=== PATIENT | male | born 1950 | race African-American/Black ===

== ENCOUNTER 2023-07-18 01:14 | Inpatient (IN) | payer OTHER ==
[~2023-07-18] VITALS: Ht 172.7 cm; Wt 54.7 kg
[2023-07-18] VITALS (11 sets, daily range): BP systolic 122–159; BP diastolic 87–92; PULSE 63–102; RESP 15–63; TEMP 97.2–98.4; O2SAT 95–100
[2023-07-18] MEDS ORDERED: DOCUSATE SOD 100 MG CAP PO PRN (05:45)
[2023-07-18] MEDS ORDERED: DEXTROSE (50%) 50ML SYRG IV PRN (05:45)
[2023-07-18] MEDS ORDERED: MORPHINE SULFATE INJ 2 MG/ml SYRG IV PRN ×2 (05:45)
[2023-07-18] MEDS ORDERED: ACETAMINOPHEN 325 MG TAB PO PRN (05:45)
[2023-07-18] MEDS ORDERED: ONDANSETRON HCL 4 MG/2 ML VIAL IV PRN (05:45)
[2023-07-18] MEDS ORDERED: NITROGLYCERIN 0.4 MG SL TAB SL PRN (05:45)
[2023-07-18] MEDS ORDERED: HYDROcodone-ACET 5/325MG TAB PO PRN (05:45)
[2023-07-18] MEDS ORDERED: hydrALAZINE HCL 20 MG/ML VL IV PRN (05:45)
[2023-07-18] MEDS: IPRATROPIUM BROM 0.5 MG/2.5ML INH SOL NEB SCH ×3 (06:00→18:53)
[2023-07-18] MEDS: ALBUTEROL SULF 2.5 MG/0.5ML(0.5%) NEB SOLN NEB SCH ×3 (06:00→18:53)
[2023-07-18] MEDS: FUROSEMIDE 20 MG/2 ML VIAL IV SCH ×2 (06:00→18:56)
[2023-07-18] MEDS: InsuLIN REG 1unit/0.01ml Soln (100units/ml) SC SCH ×4 (06:56→22:00)
[2023-07-18] MEDS: ACCU-CHEK COMFORT CURVE STRIP VI SCH ×4 (06:57→22:00)
[2023-07-18] MEDS: PANTOPRAZOLE 40 MG/10 ML VIAL INJ IV SCH (10:02)
[2023-07-18] MEDS ORDERED: ADENOSINE 44 MG in GIVE UN-DILUTED 0 ML IV STA (10:11)
[2023-07-18] MEDS: ASPirin 81 mg TAB PO SCH (12:27)
[2023-07-18] MEDS: CARVEDILOL 3.125 MG TAB PO SCH ×2 (12:27→22:00)
[2023-07-18] MEDS: ENOXAPARIN SOD 40 MG/0.4 ML SYRINGE SC SCH (12:28)
[2023-07-18] MEDS ORDERED: metOLazone 5 MG TAB PO ONE (13:15)
[2023-07-18 13:19] LABS: Basophils # (auto) 0 10 ^3/uL (0-0.2); Basophils % (auto) 0.6 % (0.0-2.0); Eosinophils # (auto) 0 10 ^3/uL (0-0.8); Eosinophils % (auto) 0.4 % (0.0-7.0); Hematocrit 44.9 % (41.0-53.0); Hemoglobin 14.7 g/dL (13.5-17.5); Lymphocytes # (auto) 0.6 10 ^3/uL (0.4-5.4); Lymphocytes % (auto) 10.2 % (10.0-50.0); Mean Corpuscular Hemoglobin 28.3 pg (28.0-32.0); Mean Corpuscular Hgb Conc. 32.9 g/dL (32.0-36.0); Mean Corpuscular Volume 86.2 fL (80.0-100.0); Monocytes # (auto) 0.6 10 ^3/uL (0-1.3); Neutrophils # (auto) 4.9 10 ^3/uL (1.6-8.6); Neutrophils % (auto) 78.8 % (37.0-80.0); Red Cell Distribution Width 15.2 % (11.8-14.3); White Blood Cell 6.2 10^3/uL (4.4-10.8)
[2023-07-18 13:21] LABS: Chloride 103 mmol/L (98-107); Potassium 3.7 mmol/L (3.5-5.1); Sodium 138 mmol/L (136-145)
[2023-07-18 13:22] LABS: Anion Gap 7.1 (5-15); Calcium 9.9 mg/dL (8.5-10.1); Carbon Dioxide 27.9 mmol/L (20-30)
[2023-07-18 13:27] LABS: BUN/Creatinine Ratio 16.4 (10.0-20.0); Blood Urea Nitrogen 23 mg/dL (9-23); Glucose 82 mg/dL (74-106)
[2023-07-18 15:36] LABS: INR 1.04 (0.9-1.15); Prothrombin Time 10.9 sec (9.3-11.8)
[2023-07-18] MEDS ORDERED: ATORVASTATIN 20 MG TAB PO SCH (22:00)
[2023-07-19] VITALS (20 sets, daily range): BP systolic 118–149; BP diastolic 78–108; PULSE 63–92; RESP 12–20; TEMP 97.6–98.2; O2SAT 93–100
[2023-07-19] MEDS: ALBUTEROL SULF 2.5 MG/0.5ML(0.5%) NEB SOLN NEB SCH ×3 (00:36→11:59)
[2023-07-19] MEDS: IPRATROPIUM BROM 0.5 MG/2.5ML INH SOL NEB SCH ×3 (00:36→11:59)
[2023-07-19] MEDS: FUROSEMIDE 20 MG/2 ML VIAL IV SCH ×2 (05:24→18:00)
[2023-07-19] MEDS: ACCU-CHEK COMFORT CURVE STRIP VI SCH ×3 (06:04→18:00)
[2023-07-19] MEDS: InsuLIN REG 1unit/0.01ml Soln (100units/ml) SC SCH ×3 (06:04→18:00)
[2023-07-19 07:24] LABS: Hemoglobin 13.9 g/dL (13.5-17.5); Mean Corpuscular Hemoglobin 28.5 pg (28.0-32.0); Mean Corpuscular Volume 86.4 fL (80.0-100.0); Red Blood Cells 4.86 10^6/uL (4.5-5.90); Red Cell Distribution Width 15.3 % (11.8-14.3); White Blood Cell 3.5 10^3/uL (4.4-10.8)
[2023-07-19 07:32] LABS: Calcium 9.5 mg/dL (8.5-10.1); Chloride 101 mmol/L (98-107); Potassium 3.6 mmol/L (3.5-5.1); Sodium 135 mmol/L (136-145)
[2023-07-19 07:33] LABS: Anion Gap 6.7 (5-15); Carbon Dioxide 27.3 mmol/L (20-30)
[2023-07-19 07:36] LABS: Band Neutrophils % (manual) 0; Basophils % (manual) 0 (0.0-2.0); Blast Cells 0; Metamyelocytes % 0; Myelocytes % 0; Promyelocytes % 0; Reactive Lymphocytes 0
[2023-07-19 07:39] LABS: BUN/Creatinine Ratio 16.3 (10.0-20.0); Blood Urea Nitrogen 25 mg/dL (9-23); Glucose 96 mg/dL (74-106)
[2023-07-19] MEDS: CARVEDILOL 3.125 MG TAB PO SCH (10:34)
[2023-07-19] MEDS: PANTOPRAZOLE 40 MG/10 ML VIAL INJ IV SCH (10:34)
[2023-07-19] MEDS: ENOXAPARIN SOD 40 MG/0.4 ML SYRINGE SC SCH (10:34)
[2023-07-19] MEDS: ASPirin 81 mg TAB PO SCH (10:34)
[2023-07-19 12:38] LABS: Eosinophils % (manual) 2 (0-7); Lymphocytes % (manual) 29 (10.0-50.0); Monocytes % (manual) 16 (0-12)
[2023-07-19 12:39] LABS: Platelet Estimate Adequate
[2023-07-19] MEDS ORDERED: IODIXANOL 320MG/ML 100ML BTL IV ONE (14:09)
[2023-07-19] MEDS ORDERED: LIDOCAINE 2%HCL (LOCAL ANESTH.) INJ 20ML MDV ONE (14:09)
[2023-07-19] MEDS ORDERED: ANGIOMAX 250 MG VIAL IV ONE (14:20)
[2023-07-19] MEDS ORDERED: HEPARIN SODIUM (PORCINE) 5000 UNITS/ML 1ML VIAL ONE (14:20)
[2023-07-19] MEDS ORDERED: fentaNYL CITRATE 100 MCG/2 ML VL ONE (14:20)
[2023-07-19] MEDS ORDERED: VERAPAMIL 2.5MG/ML INJ 2ML VIAL IV ONE (14:20)
[2023-07-19] MEDS ORDERED: MIDAZOLAM HCL 2MG/2ML 2ml VIAL (1mg/ml) ONE (14:21)
[2023-07-19] MEDS ORDERED: SODIUM CHL 0.9% 0 ML ONE (14:21)
[2023-07-19] MEDS ORDERED: CAR3125T PO (16:04)
[2023-07-19] MEDS ORDERED: POTA1TAB61 PO (16:04)
[2023-07-19] MEDS ORDERED: FURO1TAB31 PO (16:04)
[2023-07-19] MEDS ORDERED: ATOR20TA50 PO (16:04)
[2023-07-19] MEDS ORDERED: ASPI-325 PO (16:04)
== END 2023-07-19 19:07 | disposition home health service (06) | DRG 287 ==
LOC: TELE-WESTW 05:10 → UNDOADMIN 05:10 → TELE-WESTW 05:51
PROVIDERS: ADMIT Nurse Practitioner Family; ATTEND Internal Medicine
PROC: 4A023N7 Measurement of Cardiac Sampling and Pressure, Left Heart, Percutaneous Approach (ICD-10-PCS; principal; 2023-07-19)
PROC: B211YZZ Fluoroscopy of Multiple Coronary Arteries using Other Contrast (ICD-10-PCS; 2023-07-19)
DX: I16.0 Hypertensive urgency (principal); I42.8 Other cardiomyopathies; R64 Cachexia; Z68.1 Body mass index [BMI] 19.9 or less, adult; I11.0 Hypertensive heart disease with heart failure; J44.9 Chronic obstructive pulmonary disease, unspecified; E11.9 Type 2 diabetes mellitus without complications; I25.10 Atherosclerotic heart disease of native coronary artery without angina pectoris; R54 Age-related physical debility; I50.9 Heart failure, unspecified; E78.5 Hyperlipidemia, unspecified; F17.210 Nicotine dependence, cigarettes, uncomplicated; Z82.49 Family history of ischemic heart disease and other diseases of the circulatory system; Z91.199 Patient's noncompliance with other medical treatment and regimen due to unspecified reason
CPT/HCPCS: 36415; 71045; 78452; 80048; 82962; 84484; 85007; 85025; 85027; 85610; 93017; 93306; 93454; 94640; 97163; 99152; C9113; G0378; J0153; J2250; Q9967

== ENCOUNTER 2024-12-10 10:43 | Inpatient (IN) | payer BC, OTHER ==
[~2024-12-10] VITALS: Ht 170.2 cm; Wt 51.5 kg
[~2024-12-10 10:43] MED LIST: ASPI-325 PO; ATOR20TA50 PO; CARV-214 PO; FURO1TAB31 PO; POTA-215 PO
--- NOTE | 2024-12-10 11:09 | ED.PDOC ---
SOB-HPI HPI Comments 74 y.o male with PMH CHF, DM, HTN, and hyperlipidemia, presents to the ED via EMS for a chief complaint of SOB associated with a productive cough that presented 3 days ago. Patient reports worsening SOB on exertion, denies any home oxygen and was saturating at 95% room air per EMS but was given oxygen for comfort. Patient denies any chest pain, nausea, vomiting, fever, or chills. He admits to current smoking cigarettes. Chief Complaint: Shortness of Breath Time Seen by MD: 11:05 Reviewed notes: Nurses Notes, Clean Energy Policy Analyst Notes, Medications, Allergies Information Source: Patient, Emergency Med Personnel Mode of Arrival: EMS Severity: Moderate Timing: Days (3) Duration: Since onset Context: At Rest PE Risk Factors: None History of: None Modifying Factors: Nothing Associated Signs and Symptoms: Cough If cough with SOB: Productive Past Medical History PAST MEDICAL HISTORY: CHF, DM, High Lipids, HTN Surgical History: Denies all surgeries Family History Family History: Reviewed,noncontributory to illness, No family hx of Cancer, No family hx of DM, No family hx of Heart tyson, No family hx of HTN, No family hx ofKidney tyson, No family hx of Liver tyson, No family hx of Lung tyson, No family hx of Stroke Social History Smoker: Cigarettes Alcohol: Occasionally Drugs: Denies Drug Use Lives In: Home Constitutional: denies: chills, diaphoresis, fatigue, fever, malaise, sweats, weakness, others EENTM: denies: blurred vision, double vision, ear bleeding, ear discharge, ear drainage, ear pain, ear ringing, eye pain, eye redness, hearing loss, mouth pain, mouth swelling, nasal discharge, nose bleeding, nose congestion, nose pain, photophobia, tearing, throat pain, throat swelling, voice changes, others Respiratory: reports: cough, SOB at rest, shortness of breath, SOB with excertion; denies: hemoptysis, orthopnea, stridor, wheezing, others Cardiovascular: denies: chest pain, dizzy spells, diaphoresis, Dyspnea on exertion, edema, irregular heart beat, left arm pain, lightheadedness, palpitations, PND, syncope, others Gastrointestinal: denies: abdomen distended, abdominal pain, blood streaked bowels, constipated, diarrhea, dysphagia, difficulty swallowing, hematemesis, melena, nausea, poor appetite, poor fluid intake, rectal bleeding, rectal pain, vomiting, others Genitourinary: denies: burning, dysuria, flank pain, frequency, hematuria, incontinence, penile discharge, penile sore, pain, testicle pain, testicle swelling, urgency, others Neurological: denies: dizziness, fainting, headache, left sided numbness, left sided weakness, numbness, paresthesia, pre-existing deficit, right sided numbness, right sided weakness, seizure, speech problems, tingling, tremors, wea kness, others Musculoskeletal: denies: back pain, gout, joint pain, joint swelling, muscle pain, muscle stiffness, neck pain, others Integumetry: denies: bruises, change in color, change in hair/nails, dryness, l aceration, lesions, lumps, rash, wounds, others Allergic/Immunocompromised: denies: Difficulty Healing, Frequent Infections, Hives, Itching, others Hematologic/Lymphatic: denies: anemia, blood clots, easy bleeding, easy bruising, swollen glands, others Endocrine: denies: excessive hunger, excessive sweating, excessive thirst, excessive urination, flushing, intolerance to cold, intolerance to heat, unexplained weight gain, unexplained weight loss, others Psychiatric: denies: anxiety, bipolar disorder, depression, hopeless, panic disorder, schizophrenia, sleepless, suicidal, others All Other Systems: Reviewed and Negative Physical Exam General Appearance: Moderate Distress HEENT: Normal ENT Inspection, Pharynx Normal, TMs Normal Neck: Full Range of Motion, Non-Tender, Normal, Normal Inspection Respiratory: Chest Non-Tender, No Accessory Muscle Use, Rales, Respiratory Distress Cardiovascular: No Edema, No JVD, No Murmur, No Gallop, Normal Peripheral Pulses, Regular Rate/Rhythm Breast Exam: Deferred Gastrointestinal: No Organomegaly, Non Tender, No Pulsatile Mass, Normal Bowel Sounds, Soft Genitalia: Deferred Pelvic: Deferred Rectal: Deferred Extremities: No calf tenderness, Normal capillary refill, Normal inspection, Normal range of motion, Non-tender, No pedal edema Musculoskeletal : Apperance: Normal Neurologic: Alert, senior support analyst II-XII nml as Tested, Motor Weakness, Normal Affect, Normal Mood, No Sensory Deficits Cerebellar Function: Normal Reflexes: Normal Skin: Dry, Normal Color, Warm Lymphatic: No Adenopathy EKG EKG : Pulse Rate (adult): 99 [place]: Normal Cardiac Rhythm: NSR Hypertrophy: LVH ST: Nonsp Was a procedure done? Was a procedure done?: No Differential Dx Differential Diagnosis: Asthma, Bronchitis, COPD, Pneumonia, Pneumothorax, Respiratory Distress, URI X-Ray, Labs, Meds, VS Vital Signs Date Time Temp Pulse Resp B/P (MAP) Pulse Ox O2 Delivery O2 Flow Rate FiO2 12/10/24 10:55 98.3 98 25 177/130 (146) 97 12/10/24 10:50 99 Lab Test 12/10/24 13:03 12/10/24 12:02 Range/Units Troponin I High Sensitivity 78 *H 61 *H </=54 ng/L White Blood Count 4.3 L 4.4-10.8 10^3/uL Red Blood Count 4.99 4.5-5.90 10^6/uL Hemoglobin 14.6 13.5-17.5 g/dL Hematocrit 44.2 41.0-53.0 % Mean Corpuscular Volume 88.5 80.0-100.0 fL Mean Corpuscular Hemoglobin 29.3 28.0-32.0 pg Mean Corpuscular Hemoglobin Concent 33.1 32.0-36.0 g/dL Red Cell Distribution Width 15.7 H 11.8-14.3 % Platelet Count 146 140-450 10^3/uL Mean Platelet Volume 7.9 6.9-10.8 fL Neutrophils (%) (Auto) 72.2 37.0-80.0 % Lymphocytes (%) (Auto) 11.8 10.0-50.0 % Monocytes (%) (Auto) 15.6 H 0.0-12.0 % Eosinophils (%) (Auto) 0.1 0.0-7.0 % Basophils (%) (Auto) 0.3 0.0-2.0 % Neutrophils # (Auto) 3.1 1.6-8.6 10 ^3/uL Lymphocytes # (Auto) 0.5 0.4-5.4 10 ^3/uL Monocytes # (Auto) 0.7 0-1.3 10 ^3/uL Eosinophils # (Auto) 0 0-0.8 10 ^3/uL Basophils # (Auto) 0 0-0.2 10 ^3/uL Nucleated Red Blood Cells 0.1 % Sodium Level 133 L 136-145 mmol/L Potassium Level 4.0 3.5-5.1 mmol/L Chloride Level 101 98-107 mmol/L Carbon Dioxide Level 24 20-31 mmol/L Anion Gap 8 5-15 Blood Urea Nitrogen 15 9-23 mg/dL Creatinine 1.04 0.700-1.30 mg/dL Glomerular Filtration Rate Calc 75 >90 mL/min BUN/Creatinine Ratio 14.4 10.0-20.0 Serum Glucose 81 74-106 mg/dL Calcium Level 9.5 8.7-10.4 mg/dL B-Type Natriuretic Peptide Pending EXAM: XY CHEST PORTABLE IMPRESSION: 1. Right upper lobe mild patchy infiltrate in the area of the patient's previously visualized nodular opacity. Again, recommend noncontrast CT scan of the chest for better characterization if this has not already been performed elsewhere. Additionally, there are 1 or 2 smaller nodular opacities in the left mid to lower lung warranting noncontrast CT follow-up. 2. Borderline cardiomegaly with mild central interstitial prominence which may be due to reactive airways disease or mild CHF. At this time the patient was being given Lasix 40 mg IV push The patient's CBC and chemistry panel are within normal limits The troponin level was 61 and is now 78 The patient was being admitted to the hospitalist The patient will have a Cardiology consult We did speak with the hospitalist and he is going to head and put orders in for the patient Images Reviewed?: Images reviewed and evaluated by me Time of 1ST Reevaluation: 11:06 Reevaluation 1ST: Unchanged Patient Education/Counseling: Diagnosis, Treatment, Prognosis Family Education/Counseling: No Family Present Departure 1 Departure Time of Disposition: 14:13 Impression: Primary Impression: Acute on chronic diastolic heart failure Additional Impressions: Acute myocardial ischemia Elevated troponin Disposition: ADMITTED INPATIENT Admit to: Tele Condition: Fair Critical Care Note Critical Care Time?: Yes (45 min-critical care time only) Stability Stability form required: Yes Unstable for transfer: Telemetry monitoring (Telemetry monitoring required), ED Physician Assesment (Clinical assesment) I personally scribed for SWATI ZAMUDIO MD ([email or web address]) on 12/10/24 at 11:09. Electronically submitted by Callie Jones ([facility]). I personally scribed for SWATI ZAMUDIO MD ([email or web address]) on 12/10/24 at 12:25. Electronically submitted by Callie Jones ([facility]). SWATI ZAMUDIO MD Dec 10, 2024 11:09
--- NOTE | 2024-12-10 11:41 | DVH ---
EXAM: XY CHEST PORTABLE HISTORY: sob COMPARISON: XY CHEST PORTABLE on DOS: 07/19/23 TECHNIQUE: Portable AP view of the chest was performed. FINDINGS: There is a mild patchy infiltrate in the right upper lobe in the area of the previously visualized no dular opacity. There are subcentimeter nodular opacities in the left mid to lower lung which may be n ew versus the prior chest x-ray. There is central interstitial prominence. No pneumothorax. The hear t is borderline enlarged. IMPRESSION: 1. Right upper lobe mild patchy infiltrate in the area of the patient's previously visualized nodular opacity. Again, recommend noncontrast CT scan of the chest for better characterization if this has not already been performed elsewhere. Additionally, there are 1 or 2 smaller nodular opacities in the left mid to lower lung warranting noncontrast CT follow-up. 2. Borderline cardiomegaly with mild central interstitial prominence which may be due to reactive air ways disease or mild CHF.
[2024-12-10 12:42] LABS: Basophils # (auto) 0 10 ^3/uL (0-0.2); Basophils % (auto) 0.3 % (0.0-2.0); Eosinophils # (auto) 0 10 ^3/uL (0-0.8); Eosinophils % (auto) 0.1 % (0.0-7.0); Hematocrit 44.2 % (41.0-53.0); Hemoglobin 14.6 g/dL (13.5-17.5); Lymphocytes # (auto) 0.5 10 ^3/uL (0.4-5.4); Lymphocytes % (auto) 11.8 % (10.0-50.0); Mean Corpuscular Hemoglobin 29.3 pg (28.0-32.0); Mean Corpuscular Hgb Conc. 33.1 g/dL (32.0-36.0); Mean Corpuscular Volume 88.5 fL (80.0-100.0); Monocytes # (auto) 0.7 10 ^3/uL (0-1.3); Monocytes % (auto) 15.6 % (0.0-12.0); Neutrophils # (auto) 3.1 10 ^3/uL (1.6-8.6); Neutrophils % (auto) 72.2 % (37.0-80.0); Nucleated Red Blood Cells % 0.1 %; Platelet Count (auto) 146 10^3/uL (140-450); Red Blood Cells 4.99 10^6/uL (4.5-5.90); Red Cell Distribution Width 15.7 % (11.8-14.3); White Blood Cell 4.3 10^3/uL (4.4-10.8)
[2024-12-10 12:59] LABS: Chloride 101 mmol/L (98-107)
[2024-12-10 13:00] LABS: Anion Gap 8 (5-15); Calcium 9.5 mg/dL (8.7-10.4); Carbon Dioxide 24 mmol/L (20-31)
--- NOTE | 2024-12-10 13:01 | ECG ---
[facility] Test Date: 2024-12-10 Test Time: 10:50:18 Pat Name: JUAN ANTONIO OZUNA Department: er Room: [address] [place] [address] Gender: M Inspector Repairer: jessica : [id number] Requested By: SWATI ZAMUDIO Order Number: [id number] Reading MD: Gus Ramos Measurements Intervals [place] Rate: 99 P: 100 RI: 183 QRS: 29 QRSD: 118 T: -42 QT: 370 QTc: 475 Interpretive Statements Sinus rhythm LVH with IVCD and secondary repol abnrm Anterior ST elevation, probably due to LVH Electronically Signed On 12-10-2024 21:18:18 PST by Gus Ramos Please click the below link to view image of tracing.
[2024-12-10 13:05] LABS: BUN/Creatinine Ratio 14.4 (10.0-20.0); Blood Urea Nitrogen 15 mg/dL (9-23); Glucose 81 mg/dL (74-106)
[2024-12-10 13:06] LABS: Sodium 133 mmol/L (136-145)
[2024-12-10] MEDS ORDERED: DOCUSATE SOD 100 MG CAP PO PRN (14:00)
[2024-12-10] MEDS ORDERED: HYDROcodone-ACET 5/325MG TAB PO PRN (14:00)
[2024-12-10] MEDS ORDERED: MORPHINE SULFATE INJ 2 MG/ml SYRG IV PRN ×2 (14:00)
[2024-12-10] MEDS ORDERED: ONDANSETRON HCL 4 MG/2 ML VIAL IV PRN (14:00)
[2024-12-10] MEDS ORDERED: NITROGLYCERIN 0.4 MG SL TAB SL PRN (14:00)
[2024-12-10] MEDS ORDERED: ACETAMINOPHEN 325 MG TAB PO PRN (14:00)
--- NOTE | 2024-12-10 14:47 | DVH ---
Procedure: CT CHEST WITHOUT CONTRAST Reason for study/Clinical History: Lung nodule Comparison Study: None available at time of dictation. Exam Date: 12/10/2024 02:15 PM TECHNIQUE: Multidetector CT of the chest was performed from the lung apices to the upper abdomen with out the use of intravenous contract. Axial, coronal and sagittal multiplanar reformats were performed . Radiation Dose Information: CT Dose: CTDI volume is 4.82 mGy. Dose-length product is 189.08 mGy*cm The dose indicators for CT are the volume Computed Tomography (CT) Dose Index (CTDIvol) and the Dose Length Product (DLP), and are measured in units of mGy and mGy-cm, respectively. These indicators are not patient dose, but values generated from the CT scanner acquisition factors. The report includes radiation exposure data for exposures received during this examination. FINDINGS: Lower neck: Normal thyroid. Lungs: There is a 2.4 x 2 cm butterfly shaped consolidation in the right upper lung field may represe nt infiltrate or mass lesion. On coronal images there appears to be 3 closely grouped pulmonary nodul es noncalcified in the right upper lung field. Heart/Vascular Structures: Normal heart size. No pericardial effusion. Lymph Nodes: Pretracheal lymph node with short axis dimension 15.5 mm Pleura: No pleural effusion or significant pneumothorax. Musculoskeletal: No acute osseous abnormality. Soft tissues: Normal. Upper abdomen: Limited portions of the upper abdomen are unremarkable. IMPRESSION: 1. 3 Tam closely grouped noncalcified pulmonary nodules in the right upper lung field. On axial pa ges and has a somewhat butterfly appearance. Neoplasm versus infection are both in the differential. On a chest x-ray of 07/19/2023 a 15 mm nodule is recognized. Consider PET scan for further evaluation . Radiation optimization: All CT scans at this facility use at least one of these dose optimization eduar hniques: automated exposure control mA and/or kV adjustment per patient size (includes targeted exam s where dose is matched to clinical indication) or iterative reconstruction.
[2024-12-10] MEDS: FUROSEMIDE 40 MG/4 ML VIAL IV ONE (15:59)
[2024-12-10 16:40] LABS: Urine Bacteria None Seen /hpf (None Seen)
--- NOTE | 2024-12-10 16:46 | DVHHP2 ---
History of Present Illness Reason for Visit: Increasing shortness a breath for last few days History of Present Illness 74-year-old male with a known history of COPD, congestive heart failure with sy stolic dysfunction presented to the hospital with the increasing shortness a breath found to have mildly elevated troponin. Patient is still actively smokes 10 cigarettes a day. Patient did tell me that he has EF of 25% which he was told last year some time. Denies any fevers chills cough or phlegm. Cardiovascular: CHF, HTN Pulmonary: COPD Past Surgical History: None Smoke: <1 pack per day ALCOHOL: none Drugs: None Review of Systems Review of Systems Twelve review of system are negative besides mentioned above. Allergies: Coded Allergies: NO KNOWN ALLERGIES (Unverified , 07/18/23) Medications Current Medications Medications Dose Ordered Sig/Gibran Route Start Time Stop Time Status Last Admin Dose Admin Acetaminophen/ Hydrocodone Bitart 1 tab Q4HP PRN PO 12/10/24 14:00 Ondansetron HCl 4 mg Q4HP PRN IV 12/10/24 14:00 Docusate Sodium 100 mg BIDPRN PRN PO 12/10/24 14:00 Enoxaparin Sodium 40 mg DAILY SC 12/11/24 10:00 Acetaminophen 650 mg Q6HP PRN PO 12/10/24 14:00 Morphine Sulfate 2 mg Q4HPRN PRN IV 12/10/24 14:00 Nitroglycerin 0.4 mg Q5MINP PRN SL 12/10/24 14:00 Morphine Sulfate 2 mg Q30M PRN IV 12/10/24 14:00 Furosemide 40 mg BIDD IV 12/10/24 18:00 Aspirin 81 mg DAILY PO 12/10/24 16:30 Atorvastatin Calcium 40 mg HS PO 12/10/24 22:00 Exam Vital Signs Vital Signs Date Time Temp Pulse Resp B/P (MAP) Pulse Ox O2 Delivery O2 Flow Rate FiO2 12/10/24 15:59 153/102 12/10/24 15:48 98.7 103 20 97 98.7 12/10/24 15:48 Room Air Exam HEENT pupils are reactive Neck is supple CV is S1-S2 regular rate and rhythm Respiratory bilateral expiratory rhonchi GI positive bowel sound Extremity no edema [employer] no motor deficit Labs/Xrays Labs Test 12/10/24 15:58 12/10/24 15:35 12/10/24 12:02 Range/Units Troponin I High Sensitivity 73 *H </=54 ng/L White Blood Count 4.3 L 4.4-10.8 10^3/uL Red Blood Count 4.99 4.5-5.90 10^6/uL Hemoglobin 14.6 13.5-17.5 g/dL Hematocrit 44.2 41.0-53.0 % Mean Corpuscular Volume 88.5 80.0-100.0 fL Mean Corpuscular Hemoglobin 29.3 28.0-32.0 pg Mean Corpuscular Hemoglobin Concent 33.1 32.0-36.0 g/dL Red Cell Distribution Width 15.7 H 11.8-14.3 % Platelet Count 146 140-450 10^3/uL Mean Platelet Volume 7.9 6.9-10.8 fL Neutrophils (%) (Auto) 72.2 37.0-80.0 % Lymphocytes (%) (Auto) 11.8 10.0-50.0 % Monocytes (%) (Auto) 15.6 H 0.0-12.0 % Eosinophils (%) (Auto) 0.1 0.0-7.0 % Basophils (%) (Auto) 0.3 0.0-2.0 % Neutrophils # (Auto) 3.1 1.6-8.6 10 ^3/uL Lymphocytes # (Auto) 0.5 0.4-5.4 10 ^3/uL Monocytes # (Auto) 0.7 0-1.3 10 ^3/uL Eosinophils # (Auto) 0 0-0.8 10 ^3/uL Basophils # (Auto) 0 0-0.2 10 ^3/uL Nucleated Red Blood Cells 0.1 % Sodium Level 133 L 136-145 mmol/L Potassium Level 4.0 3.5-5.1 mmol/L Chloride Level 101 98-107 mmol/L Carbon Dioxide Level 24 20-31 mmol/L Anion Gap 8 5-15 Blood Urea Nitrogen 15 9-23 mg/dL Creatinine 1.04 0.700-1.30 mg/dL Glomerular Filtration Rate Calc 75 >90 mL/min BUN/Creatinine Ratio 14.4 10.0-20.0 Serum Glucose 81 74-106 mg/dL Calcium Level 9.5 8.7-10.4 mg/dL B-Type Natriuretic Peptide 1125.49 0-100 pg/mL Assessment/Plan Assessment/Plan 74-year-old male with a known history of congestive heart failure with systolic dysfunction, hypertension, COPD, chronic active tobacco use disorder presented to the hospital with the increasing shortness a breath found to have 1. Acute COPD exacerbation 2. Acute on chronic congestive heart failure exacerbation with systolic dysfunction 3. Cardiomyopathy 4. Chronic active tobacco use disorder 5. Mildly elevated troponin suspect demand ischemia secondary to acute on chronic congestive heart failure exacerbation rule out acute [place] 6. Hypertension -tele admit, IV diuretics, med nebs, Solu-Medrol, 2D echo cardiology consultation - Plan discussed with: Patient, Spouse My Orders Orders - NELLIE RUIZ MD Procedure Category Date Status Time Admit ADMIT 12/10/24 Transmitted 13:54 Code Status CODE 12/10/24 Transmitted 13:54 2 Gm Sodium Diet DIET 12/10/24 Transmitted Dinner Hydrocodone-Acet PHA 12/10/24 In Process 5/325mg Tab ([place] 14:00 Ondansetron Hcl PHA 12/10/24 In Process (Zofran) 14:00 Docusate Sodium PHA 12/10/24 In Process Capsule (Colace 14:00 Enoxaparin Sodium PHA 12/11/24 In Process (Lovenox) 10:00 Fall Risk Precautions ALISHA 12/10/[address] 13:54 Pt Request For Service PT 12/10/24 Logged 13:54 Echo 2d Mode Cardiac US 12/10/24 Logged DOP 13:54 Condition: Stable ALISHA 12/10/24 In Process 13:54 Acetaminophen Tablet PHA 12/10/24 In Process (Tylenol Tablet) 14:00 Morphine Sulfate PHA 12/10/24 In Process Injection 14:00 Nitroglycerin PHA 12/10/24 In Process Sublingual (Ntrostat 14:00 Morphine Sulfate PHA 12/10/24 In Process Injection 14:00 Stat Ekg For Chest ALISHA 12/10/24 In Process Pain 13:54 Notify Of Changes ALISHA 12/10/24 In Process From Base 13:54 Postal Service Window Clerk For ALISHA 12/10/24 In Process 24 Hours 13:54 Emergency Dysrhythmia ALISHA 12/10/24 In Process Protocol 13:54 Rhythm Strips Once ALISHA 12/10/24 In Process Every Shift 13:54 Oxygen By Nasal RT 12/10/24 Transmitted Cannula 13:54 Furosemide Injection PHA 12/10/24 In Process (Lasix Injection) 18:00 * Cardiology Consult CONS 12/10/24 Transmitted 13:[address] 12/10/24 Resulted 13:54 Aspirin Tablet PHA 12/10/24 In Process 16:30 Atorvastatin (Lipitor) PHA 12/10/24 In Process 22:00 Methylprednisolone PHA 12/10/24 Transmitted Sod Succ (Solu Medrol 22:00 Albuterol Medneb PHA 12/10/24 Transmitted (Ventolin Medneb) 18:00 Ipratropium Medneb PHA 12/10/24 Transmitted (Atrovent Medneb) 18:00 Date of Service: Dec 10, 2024 Billing Provider: NELLIE RUIZ MD Common Visit Codes: NOT BILLABLE NELLIE RUIZ MD Dec 10, 2024 16:46
[2024-12-10 16:58] VITALS: BP 153/102; PULSE 101; RESP 18; TEMP 98.7; O2SAT 98
[2024-12-10] MEDS: ASPirin 81 mg TAB PO SCH (17:09)
[2024-12-10] MEDS: FUROSEMIDE 40 MG/4 ML VIAL IV SCH (17:10)
[2024-12-10 17:11] LABS: Urine Blood TRACE /uL (Negative); Urine Clarity Clear (Clear); Urine Color Yellow (Yellow); Urine Hyaline Cast FEW /lpf (0 - 2); Urine Mucus FEW (None Seen); Urine Protein, UAD 1+ (Negative); Urine Specific Gravity 1.016 (1.001-1.035); Urine Squamous Epithelial Cell FEW /hpf (<5); Urine Urobilinogen Normal (Negative); Urine WBC 1 /HPF (0-3)
[2024-12-10] MEDS ORDERED: ALBUTEROL SULF 2.5 MG/0.5ML(0.5%) NEB SOLN NEB SCH (18:00)
[2024-12-10] MEDS ORDERED: IPRATROPIUM BROM 0.5 MG/2.5ML INH SOL NEB SCH (18:00)
[2024-12-10 18:56] VITALS: PULSE 101; PULSE 103; RESP 18; RESP 20; O2SAT 94; O2SAT 97
--- NOTE | 2024-12-10 19:17 | DVHINCON2 ---
Date Seen: Dec 10, 2024 Referring Physician MD Sandeep Reason for Consultation CHF History of Present Illness This is a 74-year-old man who presented to the emergency room with a chief complaint of shortness of breath for three days. The patient complains of progressive shortness of breath associated with a nonproductive cough, CUI, and PND. Denies chest pain, palpitations, diaphoresis, dizziness, or syncopal event s. He underwent a 12 lead electrocardiogram revealing a sinus rhythm with left ventricular hypertrophy. Serial troponin levels peaked at 78 ng/L. Significant medical history includes a nonischemic/dilated cardiomyopathy with an LVEF of <20%, atrial septal aneurysm, procedure, dyslipidemia, a smoking history of 50 pack years, and daily alcohol use. Past Medical History Past medical history reviewed. No other significant than mentioned above. Past Surgical History Denies any past surgical history. Family History: Hypertension Family History Family history reviewed. Social History See HPI. Allergies: Coded Allergies: NO KNOWN ALLERGIES (Unverified , 07/18/23) Home Meds Active Scripts Potassium Chloride (Klor-Con M10) 10 Meq Tab, 1 TAB PO DAILY, #30 TAB 5 Refills Prov:NELLIE RUIZ MD 07/19/23 Furosemide (Lasix) 40 Mg Tab, 40 MG PO DAILY, #30 TAB Prov:NELLIE RUIZ MD 07/19/23 Atorvastatin Calcium (ATORVASTATIN CALCIUM) 20 Mg Tab, 1 TAB PO DAILY, #30 TAB 5 Refills Prov:NELLIE RUIZ MD 07/19/23 Carvedilol (COREG) 3.125 Mg Tab, 3.125 MG PO Q12HR, #30 TAB Prov:NELLIE RUIZ MD 07/19/23 Aspirin (Aspirin Low Dose) 81 Mg Tab, 81 MG PO DAILY, #30 TAB Prov:NELLIE RUIZ MD 07/19/23 Home Meds Home medications reviewed. Current Medications Current Medications Medications (Trade) Dose Ordered Sig/Gibran Route PRN Reason Start Time Stop Time Status Last Admin Acetaminophen/ Hydrocodone Bitart ([place] 5/325MG Tab) 1 tab Q4HP PRN PO MODERATE PAIN (4-6 PAIN SCALE) 12/10/24 14:00 Ondansetron HCl (Zofran) 4 mg Q4HP PRN IV NAUSEA / VOMITING 12/10/24 14:00 Docusate Sodium (Colace Capsule) 100 mg BIDPRN PRN PO FOR CONSTIPATION 12/10/24 14:00 Enoxaparin Sodium (Lovenox) 40 mg DAILY SC 12/11/24 10:00 Acetaminophen (Tylenol Tablet) 650 mg Q6HP PRN PO PAIN SCALE 1-3 OR TEMP>100.4 12/10/24 14:00 Morphine Sulfate 2 mg Q4HPRN PRN IV SEVERE PAIN (7-10 PAIN SCALE) 12/10/24 14:00 Nitroglycerin (Ntrostat Sublingual) 0.4 mg Q5MINP PRN SL FOR CHEST PAIN 12/10/24 14:00 Morphine Sulfate 2 mg Q30M PRN IV FOR CHEST PAIN 12/10/24 14:00 Furosemide (Lasix Injection) 40 mg BIDD IV 12/10/24 18:00 Aspirin 81 mg DAILY PO 12/10/24 16:30 12/10/24 17:09 Atorvastatin Calcium (Lipitor) 40 mg HS PO 12/10/24 22:00 Methylprednisolone Sodium Succinate (Solu Medrol) 40 mg Q8HR IV 12/10/24 22:00 Albuterol (Ventolin Medneb) 2.5 mg Q4HWA NEB 12/10/24 18:00 Ipratropium [place] (Atrovent Medneb) 0.5 mg Q4HWA NEB 12/10/24 18:00 Review of Systems Constitutional: No symptom reported Ears, Nose, & Throat: No symptom reported Eyes: No symptom reported Neurological: No symptoms reported Pulmonary/Respiratory: SOB, nonproductive cough, CUI, PND Cardiovascular: No symptom reported Gastrointestinal: No symptom reported Genitourinary: No symptom reported Musculoskeletal: No symptom reported Skin: No symptom reported Psychiatric: No symptom reported Endocrine: No symptom reported Hemotologic/Lymphatic: No symptom reported Vital Signs Vital Signs Date Time Temp Pulse Resp B/P (MAP) Pulse Ox O2 Delivery O2 Flow Rate FiO2 12/10/24 18:29 104 20 150/109 (123) 94 12/10/24 16:58 98.7 2.0 28 98.7 12/10/24 15:48 Room Air Physical Exam General Appearance: Cooperative. Cachectic. Mild acute respiratory distress Head Exam: Normal inspection Neck Exam: Normal inspection. Non-tender. Normal alignment Pulmonary/Respiratory: Chest non-tender. Diminished bilateral breath sounds L>R. Tachypneic Cardiovascular/Chest: Regular rate and rhythm. S1, S2. Sinus rhythm with LVH. No murmurs. No JVD. Peripheral Pulses: 2+ Radial (R). 2+ Radial (L). 2+ Pedal (R). 2+ Pedal (L) Abdominal Exam: Normal bowel sounds. Soft. Nontender. No hepatospenomegaly. No masses Ankle Exam: Negative ankle edema Lower extremities: Negative lower extremity edema Neuro/Mental Status: A&O x4. Coherent Thoughts/Psych: Normal thought pattern. Appropriate mood and affect. Good judgement and insight Appearance: Mild acute respiratory distress Skin Exam: Normal inspection. Normal color. Warm. Dry Labs/Diagnostic Data Labs Test 12/10/24 15:58 12/10/24 15:35 12/10/24 12:02 Range/Units Urine Color Yellow Yellow Urine Clarity Clear Clear Urine pH 6.0 5.0-9.0 Urine Specific [place] 1.016 1.001-1.035 Urine Protein 1+ H Negative Urine Ketones 1+ H Negative Urine Blood Trace H Negative /uL Urine Nitrite Negative Negative Urine Bilirubin Negative Negative Urine Urobilinogen Normal Negative mg/dL Urine Leukocyte Esterase Negative Negative /uL Urine RBC <1 0 - 3 /hpf Urine Microscopic WBC 1 0-3 /HPF Urine Squamous Epithelial Cells Few <5 /hpf Urine Bacteria None seen None Seen /hpf Urine Hyaline Casts Few 0 - 2 /lpf Urine Mucus Few None Seen Urine Glucose Normal Normal mg/dL Troponin I High Sensitivity 73 *H </=54 ng/L White Blood Count 4.3 L 4.4-10.8 10^3/uL Red Blood Count 4.99 4.5-5.90 10^6/uL Hemoglobin 14.6 13.5-17.5 g/dL Hematocrit 44.2 41.0-53.0 % Mean Corpuscular Volume 88.5 80.0-100.0 fL Mean Corpuscular Hemoglobin 29.3 28.0-32.0 pg Mean Corpuscular Hemoglobin Concent 33.1 32.0-36.0 g/dL Red Cell Distribution Width 15.7 H 11.8-14.3 % Platelet Count 146 140-450 10^3/uL Mean Platelet Volume 7.9 6.9-10.8 fL Neutrophils (%) (Auto) 72.2 37.0-80.0 % Lymphocytes (%) (Auto) 11.8 10.0-50.0 % Monocytes (%) (Auto) 15.6 H 0.0-12.0 % Eosinophils (%) (Auto) 0.1 0.0-7.0 % Basophils (%) (Auto) 0.3 0.0-2.0 % Neutrophils # (Auto) 3.1 1.6-8.6 10 ^3/uL Lymphocytes # (Auto) 0.5 0.4-5.4 10 ^3/uL Monocytes # (Auto) 0.7 0-1.3 10 ^3/uL Eosinophils # (Auto) 0 0-0.8 10 ^3/uL Basophils # (Auto) 0 0-0.2 10 ^3/uL Nucleated Red Blood Cells 0.1 % Sodium Level 133 L 136-145 mmol/L Potassium Level 4.0 3.5-5.1 mmol/L Chloride Level 101 98-107 mmol/L Carbon Dioxide Level 24 20-31 mmol/L Anion Gap 8 5-15 Blood Urea Nitrogen 15 9-23 mg/dL Creatinine 1.04 0.700-1.30 mg/dL Glomerular Filtration Rate Calc 75 >90 mL/min BUN/Creatinine Ratio 14.4 10.0-20.0 Serum Glucose 81 74-106 mg/dL Calcium Level 9.5 8.7-10.4 mg/dL B-Type Natriuretic Peptide 1125.49 0-100 pg/mL Assessment Acute on chronic decompensated HFrEF Nonischemic/dilated cardiomyopathy with LVEF <20% NSTEMI type 2 secondary to above Suspected for pulmonary malignancy Hypertension Dyslipidemia Tobacco/alcohol dependence Cachexia Plan/Recommendation (Dr. Ramos) The patient with [id number] nonobstructive coronary artery disease and a nonischemic/dilated cardiomyopathy with an LVEF <20% will be initiated on GDMT for CHF. Continue preload and afterload reduction as tolerated. Strict I&Os, daily weight, fluid restriction. Continue single-antiplatelet therapy and lipid lowering agent. Monitor ECG changes and notify. DVT/VTE prophylaxis. Strongly recommend to rule out pulmonary malignancy given CT results. Thank you for allowing us to participate in this patient's care. Please call if you have any questions or concerns. This medical document was created using an electronic medical record system with voice recognition software and computerized dictation system. Although this document has been carefully reviewed, there might still be some phonetic and typographical errors. Occasional wrong-word or ``sound-alike substitutions may have occurred due to the inherent limitations of voice recognition software. These areas are purely typographical due to imperfections of the software programs and do not reflect any compromise in the patient's medical care. Please read the chart carefully and recognize, using context, where these substitutions have occurred. Plan discussed with: Patient, Other NYHA Physical activity limitations: NA Date of Service: Dec 10, 2024 Billing Provider: CHINO HSIEH Cardiology Common Codes: [id number] INP/OBS CARE (High) CHINO HSIEH Dec 10, 2024 19:17
[2024-12-10] MEDS ORDERED: hydrALAZINE HCL 20 MG/ML VL IV PRN (19:30)
[2024-12-10] MEDS ORDERED: methylPREDNISolone SOD SUCC 40 MG/ML VL IV SCH (22:00)
[2024-12-10] MEDS ORDERED: ATORVASTATIN 20 MG TAB PO SCH (22:00)
[2024-12-10] MEDS ORDERED: CARVEDILOL 3.125 MG TAB PO SCH (22:00)
[2024-12-11] VITALS (8 sets, daily range): BP systolic 147–176; BP diastolic 84–126; PULSE 80–114; RESP 13–20; TEMP 98–99.8; O2SAT 93–100
[2024-12-11] MEDS: FUROSEMIDE 40 MG/4 ML VIAL IV ONE ×2 (07:18→22:09)
[2024-12-11] MEDS ORDERED: EMPAGLIFLOZIN 10 MG TAB PO SCH (10:00)
[2024-12-11] MEDS ORDERED: LISINOPRIL 20 MG TAB PO SCH (10:00)
[2024-12-11] MEDS ORDERED: SPIRONOLACTONE 25 MG TAB PO SCH (10:00)
[2024-12-11] MEDS ORDERED: NICOTINE 14 MG/24HR TOPICAL PATCH TD SCH (10:00)
[2024-12-11] MEDS ORDERED: ENOXAPARIN SOD 40 MG/0.4 ML SYRINGE SC SCH (10:00)
[2024-12-11 10:50] LABS: COVID19 ANTIGEN SOFIA FIA NEGATIVE (NEGATIVE); Rapid Influenza A Negative (Negative); Rapid Influenza B Negative (Negative)
[2024-12-11] MEDS: CARVEDILOL 3.125 MG TAB PO ONE (14:15)
--- NOTE | 2024-12-11 17:03 | DVHPN2 ---
Subjective Overnight events noted. Patient was feeling much better. Reviewed: Care Plan Changes from previous H/P or p: No Changes Objective Vitals Vital Signs Date Time Temp Pulse Resp B/P (MAP) Pulse Ox O2 Delivery O2 Flow Rate FiO2 12/11/24 16:59 98.8 106 18 150/103 (119) 100 98.8 12/11/24 08:16 Room Air* 0 21 Exam HEENT pupils are reactive Neck is supple CV is S1-S2 regular rate and rhythm Respiratory diminished breath sound bases GI posterior bowel sound Extremity no edema CLINICAL RESEARCH SPEC no motor deficit Medications Current Medications Medications Dose Ordered Sig/Gibran Route Start Time Stop Time Status Last Admin Dose Admin Carvedilol 3.125 mg Q12HR PO 12/11/24 22:00 Laboratory Results Laboratory Tests 12/10/24 12:02 Urinalysis Test 12/10/24 15:58 Urine Color Yellow (Yellow) Urine Clarity Clear (Clear) Urine pH 6.0 (5.0-9.0) Urine Specific [place] 1.016 (1.001-1.035) Urine Protein 1+ (Negative) H Urine Ketones 1+ (Negative) H Urine Blood Trace /uL (Negative) H Urine Nitrite Negative (Negative) Urine Bilirubin Negative (Negative) Urine Urobilinogen Normal mg/dL (Negative) Urine Leukocyte Esterase Negative /uL (Negative) Urine RBC <1 /hpf (0 - 3) Urine Microscopic WBC 1 /HPF (0-3) Urine Squamous Epithelial Cells Few /hpf (<5) Urine Bacteria None seen /hpf (None Seen) Urine Hyaline Casts Few /lpf (0 - 2) Urine Mucus Few (None Seen) Urine Glucose Normal mg/dL (Normal) Assessment/Plan Assessment/Plan 74-year-old male with a known history of congestive heart failure with systolic dysfunction, hypertension, COPD, chronic active tobacco use disorder presented to the hospital with the increasing shortness a breath found to have 1. Acute COPD exacerbation 2. Acute on chronic congestive heart failure exacerbation with systolic dysfunction 3. Cardiomyopathy 4. Chronic active tobacco use disorder 5. Mildly elevated troponin suspect demand ischemia secondary to acute on chronic congestive heart failure exacerbation rule out acute [place] 6. Hypertension IV diuretics, med nebs, Solu-Medrol, 2D echo cardiology consultation -discharge planning next 24 hours. - Plan discussed with: Patient My Orders Orders - NELLIE RUIZ MD Procedure Category Date Status Time Cardiac DIET 12/11/24 Transmitted Diet-2gna,Lofat,Lochol Lunch Carvedilol Tablet PHA 12/11/24 In Process (Coreg Tablet) 22:00 Date of Service: Dec 11, 2024 Billing Provider: NELLIE RUIZ MD Common Visit Codes: NOT BILLABLE NELLIE RUIZ MD Dec 11, 2024 17:03
[2024-12-11] MEDS: hydrALAZINE HCL 20 MG/ML VL IV SCH (18:25)
--- NOTE | 2024-12-11 18:44 | DVHSR ---
APPROVED REPORT EXAM: Two-dimensional and M-mode echocardiogram with Doppler and color Doppler. Blood Pressure: 146/104 mmHg INDICATION Congestive heart failure RISK FACTORS Height: 5'7", Weight: 110 DIMENSIONS LVDd5.8 (3.8-5.7cm)LA (2D)3.8 (1.9-4.0cm)Aortic Root4.1 (2.0-3.7cm) LVDs5.1 (2.5-4.0cm)LA (MM) (1.9-4.0cm)Aortic Cusp Exc1.8 (1.5-2.0cm) EF (%) 25.0 (55-70%)Rt. Atrium4.1 (1.9-4.0cm)Asc. Aorta cm IVSd1.1 (0.7-1.1cm)RV (D) (1.8-2.4cm) PWd1.0 (0.7-1.1cm) Mitral Valve MitralMitral Stenosis E wave0.67m/sMV Mean GR.mmHg E/A ratio0.02D MVAcm2 Aortic Valve Aortic ValveAortic Stenosis V10.90m/Tristian Mean GR.3mmHg V21.16m/Tristian Peak GR.5mmHg LVOT Diameter2.2 (1.8-2.4cm)Doppler AVA2.95cm2 Pulmonic Valve V20.74m/s Conclusion Sinus rhythm. Right atrial and aortic root enlargement. Valves are normal. Dilation of the sinuses of Valsalva. EF of 15-20% with severe global hypokinesis. RV function is at about 40%. Pericardial fat pad noted anteriorly.nremarkable. Dopplers unremarkable. Mild to moderate aortic insufficiency. Mild mitral, mild pulmonic insufficie ncy. No pericardial effusion masses or vegetations.
--- NOTE | 2024-12-11 18:56 | DVHPN2 ---
Consult Progress Note Date Seen: Dec 11, 2024 Subjective Review of Systems: CVS:Normal, RESPIRATORY:Normal, NEURO:Normal Other Systems: Denies any cardiac symptoms Objective vital signs Vital Sign Date Time Temp Pulse Resp B/P (MAP) Pulse Ox O2 Delivery O2 Flow Rate FiO2 12/11/24 18:25 174/124 12/11/24 17:43 98.8 107 16 98.8 12/11/24 16:59 100 12/11/24 08:16 Room Air* 0 21 medications Current Medications Medications Dose Ordered Sig/Gibran Route Start Time Stop Time Status Last Admin Dose Admin Carvedilol 3.125 mg Q12HR PO 12/11/24 22:00 Hydralazine HCl 10 mg Q6HR IV 12/11/24 18:00 12/11/24 18:25 10 MG Examination: LUNGS:Normal, CVS:Normal, NEURO:Normal laboratory and microbiology Laboratory Tests 12/10/24 12:02 Test 12/10/24 12:02 Range/Units Serum Glucose 81 74-106 mg/dL Problem List/Assessment/Plan Problem List/Assessment/Plan Acute on chronic decompensated HFrEF Nonischemic/dilated cardiomyopathy with LVEF 15-20% NSTEMI type 2 secondary to above Suspected for pulmonary malignancy Hypertension Dyslipidemia Tobacco/alcohol dependence Cachexia Plan/Recommendation (Dr. Ramos) The patient with [id number] nonobstructive coronary artery disease and a nonischemic/dilated cardiomyopathy with an LVEF 15-20% has been initiated on GDMT for CHF. Continue preload and afterload reduction as tolerated. Strict I&Os, daily weight, fluid restriction. Continue single-antiplatelet therapy and lipid lowering agent. Cardiac stable at this time. Follow-up with primary laboratory technician within 1-2 weeks for discharge. The patient may be a candidate for an ICD if no improvement on LVEF with three months of GDMT for CHF. We will sign off at this time. Kindly call if in need to re-consult. Strongly recommend to rule out pulmonary malignancy given CT results. Thank you for allowing us to participate in this patient's care. This medical document was created using an electronic medical record system with voice recognition software and computerized dictation system. Although this document has been carefully reviewed, there might still be some phonetic and typographical errors. Occasional wrong-word or ``sound-alike substitutions may have occurred due to the inherent limitations of voice recognition software. These areas are purely typographical due to imperfections of the software programs and do not reflect any compromise in the patient's medical care. Please read the chart carefully and recognize, using context, where these substitutions have occurred. Plan discussed with: Patient, Other Date of Service: Dec 11, 2024 Billing Provider: CHINO HSIEH Cardiology Common Codes: [id number] HOSP CARE(High CHINO HSIEH Dec 11, 2024 18:56
[2024-12-11] MEDS ORDERED: CARVEDILOL 3.125 MG TAB PO SCH (22:00)
[2024-12-11] MEDS: CARVEDILOL 3.125 MG TAB PO SCH (22:00)
[2024-12-11] MEDS: LISINOPRIL 20 MG TAB PO ONE (22:04)
[2024-12-11] MEDS: SPIRONOLACTONE 25 MG TAB PO ONE ×2 (22:14→22:20)
[2024-12-12] VITALS (7 sets, daily range): BP systolic 108–135; BP diastolic 72–87; PULSE 62–96; RESP 14–16; TEMP 98.3–98.5; O2SAT 94–100
[2024-12-12 06:20] LABS: Hematocrit 44.5 % (41.0-53.0); Hemoglobin 15.2 g/dL (13.5-17.5); Mean Corpuscular Hemoglobin 29.7 pg (28.0-32.0); Mean Corpuscular Hgb Conc. 34.1 g/dL (32.0-36.0); Mean Corpuscular Volume 86.9 fL (80.0-100.0); Platelet Count (auto) 145 10^3/uL (140-450); Red Blood Cells 5.12 10^6/uL (4.5-5.90); Red Cell Distribution Width 14.9 % (11.8-14.3); White Blood Cell 4.5 10^3/uL (4.4-10.8)
[2024-12-12 06:30] LABS: Chloride 98 mmol/L (98-107); Potassium 3.9 mmol/L (3.5-5.1)
[2024-12-12 06:31] LABS: Anion Gap 11 (5-15); Calcium 10.3 mg/dL (8.7-10.4); Carbon Dioxide 25 mmol/L (20-31)
[2024-12-12 06:36] LABS: BUN/Creatinine Ratio 16.5 (10.0-20.0); Band Neutrophils % (manual) 0; Basophils % (manual) 0 (0.0-2.0); Blast Cells 0; Blood Urea Nitrogen 22 mg/dL (9-23); Eosinophils % (manual) 0 (0-7); Metamyelocytes % 0; Myelocytes % 0; Promyelocytes % 0; Reactive Lymphocytes 0
[2024-12-12 06:37] LABS: Glucose 109 mg/dL (74-106); Sodium 134 mmol/L (136-145)
[2024-12-12] MEDS ORDERED: hydrALAZINE HCL 20 MG/ML VL IV PRN (07:00)
[2024-12-12] MEDS: EMPAGLIFLOZIN 10 MG TAB PO SCH (08:27)
[2024-12-12] MEDS: FUROSEMIDE 40 MG TAB PO SCH (08:27)
[2024-12-12] MEDS: CARVEDILOL 3.125 MG TAB PO SCH (08:28)
[2024-12-12] MEDS: SPIRONOLACTONE 25 MG TAB PO SCH (08:29)
[2024-12-12] MEDS: LISINOPRIL 20 MG TAB PO SCH (08:31)
[2024-12-12 08:56] LABS: Large Platelets FEW; Lymphocytes % (manual) 21 (10.0-50.0); Monocytes % (manual) 19 (0-12); Platelet Estimate Adequate
[2024-12-12] MEDS ORDERED: LISINOPRIL 20 MG TAB PO SCH (10:00)
[2024-12-12] MEDS ORDERED: SPIRONOLACTONE 25 MG TAB PO SCH (10:00)
[2024-12-12] MEDS ORDERED: LISI20TA56 PO (13:28)
[2024-12-12] MEDS ORDERED: SPIR25TA PO (13:28)
[2024-12-12] MEDS ORDERED: EMPA1TAB PO (13:28)
[2024-12-12] MEDS ORDERED: ALBUAER3 IN (13:32)
--- NOTE | 2024-12-12 13:36 | DVHDS2 ---
Discharge Summary Date of Admission Dec 10, 2024 at 13:54 Date of Discharge: Dec 12, 2024 Labs/Diagnostic Data: Laboratory Results Test 12/12/24 05:31 12/11/24 08:45 12/10/24 15:58 12/10/24 15:35 White Blood Count 4.5 10^3/uL (4.4-10.8) Red Blood Count 5.12 10^6/uL (4.5-5.90) Hemoglobin 15.2 g/dL (13.5-17.5) Hematocrit 44.5 % (41.0-53.0) Mean Corpuscular Volume 86.9 fL (80.0-100.0) Mean Corpuscular Hemoglobin 29.7 pg (28.0-32.0) Mean Corpuscular Hemoglobin Concent 34.1 g/dL (32.0-36.0) Red Cell Distribution Width 14.9 % (11.8-14.3) Platelet Count 145 10^3/uL (140-450) Mean Platelet Volume 7.3 fL (6.9-10.8) Neutrophils (%) (Auto) % (37.0-80.0) Lymphocytes (%) (Auto) % (10.0-50.0) Monocytes (%) (Auto) % (0.0-12.0) Basophils (%) (Auto) % (0.0-2.0) Neutrophils # (Auto) 10 ^3/uL (1.6-8.6) Lymphocytes # (Auto) 10 ^3/uL (0.4-5.4) Monocytes # (Auto) 10 ^3/uL (0-1.3) Differential Total Cells Counted 100.0 (100) Neutrophils % (Manual) 60 (37.0-80.0) Band Neutrophils % (Manual) 0 Lymphocytes % (Manual) 21 (10.0-50.0) Monocytes % (Manual) 19 (0-12) Eosinophils % (Manual) 0 (0-7) Basophils % (Manual) 0 (0.0-2.0) Metamyelocytes % (manual) 0 Myelocytes % (Manual) 0 Promyelocytes % (Manual) 0 Blast Cells % (Manual) 0 Reactive Lymphocytes 0 Platelet Estimate Adequate Large Platelets Few Sodium Level 134 mmol/L (136-145) Potassium Level 3.9 mmol/L (3.5-5.1) Chloride Level 98 mmol/L (98-107) Carbon Dioxide Level 25 mmol/L (20-31) Anion Gap 11 (5-15) Blood Urea Nitrogen 22 mg/dL (9-23) Creatinine 1.33 mg/dL (0.700-1.30) Glomerular Filtration Rate Calc 56 mL/min (>90) BUN/Creatinine Ratio 16.5 (10.0-20.0) Serum Glucose 109 mg/dL (74-106) Calcium Level 10.3 mg/dL (8.7-10.4) B-Type Natriuretic Peptide 446.07 pg/mL (0-100) Influenza Type A Antigen Negative (Negative) Influenza Type B Antigen Negative (Negative) SARS-CoV-2 Antigen (Rapid) Negative (NEGATIVE) Urine Color Yellow (Yellow) Urine Clarity Clear (Clear) Urine pH 6.0 (5.0-9.0) Urine Specific [place] 1.016 (1.001-1.035) Urine Protein 1+ (Negative) Urine Ketones 1+ (Negative) Urine Blood Trace /uL (Negative) Urine Nitrite Negative (Negative) Urine Bilirubin Negative (Negative) Urine Urobilinogen Normal mg/dL (Negative) Urine Leukocyte Esterase Negative /uL (Negative) Urine RBC <1 /hpf (0 - 3) Urine Microscopic WBC 1 /HPF (0-3) Urine Squamous Epithelial Cells Few /hpf (<5) Urine Bacteria None seen /hpf (None Seen) Urine Hyaline Casts Few /lpf (0 - 2) Urine Mucus Few (None Seen) Urine Glucose Normal mg/dL (Normal) Troponin I High Sensitivity 73 ng/L (</=54) Test 12/10/24 12:02 Eosinophils (%) (Auto) 0.1 % (0.0-7.0) Eosinophils # (Auto) 0 10 ^3/uL (0-0.8) Basophils # (Auto) 0 10 ^3/uL (0-0.2) Nucleated Red Blood Cells 0.1 % Other Laboratory Tests 12/12/24 05:31 Brief Hx & Hospital Course: 74-year-old male with a known history of congestive heart failure with systolic dysfunction, hypertension, COPD, chronic active tobacco use disorder presented to the hospital with the increasing shortness a breath found to have acute on chronic congestive heart failure exacerbation with systolic this smoking as well as dosed COPD exacerbation. Patient was seen by Cardiology and lisinopril and Aldactone was started. Patient also was given breathing treatment and currently bruits sent home on inhaler as well as Medrol Dosepak. Patient will be given he will antibiotics for home. Patient found to have right lung pneumonia/pulmonary nodules. Outpatient PET scan to rule out underlying lung cancer as the patient is on high-risk because of active tobacco use disorder. Patient currently distended but with the understanding and agreeable to plan. Condition at Discharge: Stable Final Diagnosis/Problems List 74-year-old male with a known history of congestive heart failure with systolic dysfunction, hypertension, COPD, chronic active tobacco use disorder presented to the hospital with the increasing shortness a breath found to have 1. Acute COPD exacerbation 2. Acute on chronic congestive heart failure exacerbation with systolic dysfunction 3. Cardiomyopathy 4. Chronic active tobacco use disorder 5. Mildly elevated troponin suspect demand ischemia secondary to acute on chronic congestive heart failure exacerbation rule out acute [place] 6. Right lung pneumonia/lung nodules, rule out malignancy, med scan as an outpatient and follow up with the Pulmonary. 7. Chronic tobacco use disorder, nicotine cessation counseling has been discussed Discharge Disposition: Home with [facility] Services [facility] Discharge Will this Physician continue t: No Discharge Instruct/Medications Diet: Cardiac 2g Na,low cholest Activity: No Restrictions, As Tolerated Follow Up/Referral: Follow up with the PCP in 1-2 weeks Follow up with Dr. Calero in 1 week Follow up with the Cardiology in 1-2 weeks Medications: Lisinopril, Aldactone and Jardiance as prescribed, resume home medications Discharge Statement: "Patient was advised to return to the ER or call 911 if any headaches, dizziness, shortness of breath, chest pain, abdominal pain, bleeding, fevers, or worsening of medical condition. Patient was counseled about treatment plan, medications, possible side effects, patientverbalized understanding. All questions were answered to the best of my ability. This discharge took greater then 30 minutes in planning, reviewing documentation, counseling the patient, and discussing with other team members." DME: Diagnosis: PT Reccs ASSESSMENT ASSESSMENT Assessment 74-year-old male with a known history of congestive heart failure with systolic dysfunction, hypertension, COPD, chronic active tobacco use disorder presented to the hospital with the increasing shortness a breath found to have 1. Acute COPD exacerbation 2. Acute on chronic congestive heart failure exacerbation with systolic dysfunction 3. Cardiomyopathy 4. Chronic active tobacco use disorder 5. Mildly elevated troponin suspect demand ischemia secondary to acute on chronic congestive heart failure exacerbation rule out acute [place] 6. Right lung pneumonia/lung nodules, rule out malignancy, med scan as an outpatient and follow up with the Pulmonary. 7. Chronic tobacco use disorder, nicotine cessation counseling has been discussed Date of Service: Dec 12, 2024 Billing Provider: NELLIE RUIZ MD Common Visit Codes: NOT BILLABLE NELLIE RUIZ MD Dec 12, 2024 13:36
[2024-12-12] MEDS ORDERED: DOXY100C79 PO (13:37)
[2024-12-12] MEDS ORDERED: METH4PAK PO (13:37)
== END 2024-12-12 16:15 | disposition home or self-care (01) | DRG 280 ==
LOC: ER 10:43 → EDBD 10:43 → TELE 13:54 → UNDODISIN 22:14 → TELE-CENTR 12-11 17:40
PROVIDERS: ADMIT Internal Medicine; ATTEND Internal Medicine
DX: I11.0 Hypertensive heart disease with heart failure (principal); I50.43 Acute on chronic combined systolic (congestive) and diastolic (congestive) heart failure; I21.A1 Myocardial infarction type 2; J18.9 Pneumonia, unspecified organism; J44.1 Chronic obstructive pulmonary disease with (acute) exacerbation; R64 Cachexia; Z68.1 Body mass index [BMI] 19.9 or less, adult; J44.0 Chronic obstructive pulmonary disease with (acute) lower respiratory infection; Z20.822 Contact with and (suspected) exposure to COVID-19; I42.0 Dilated cardiomyopathy; E78.5 Hyperlipidemia, unspecified; F10.20 Alcohol dependence, uncomplicated; F17.210 Nicotine dependence, cigarettes, uncomplicated; E11.9 Type 2 diabetes mellitus without complications; I25.10 Atherosclerotic heart disease of native coronary artery without angina pectoris; Y90.9 Presence of alcohol in blood, level not specified; Z82.49 Family history of ischemic heart disease and other diseases of the circulatory system
CPT/HCPCS: 36415; 71045; 71250; 80048; 81001; 83880; 84484; 85007; 85025; 85027; 87426; 87804; 93005; 93306; 94640; 96374; 96375; 97163; 99291; G0378